=== PATIENT | male | born 1995 | race Caucasian/White ===

== ENCOUNTER 2017-12-02 16:37 | Emergency (ER) | payer BC ==
[2017-12-02] MEDS ORDERED: Silver Sulfadiazine 1% Crm 50 GM Tube TOP ONE ×2 (17:12→17:30)
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
== END 2017-12-02 17:36 | disposition home or self-care (01) ==
LOC: FB.ED 16:37
DX: T23.201A Burn of second degree of right hand, unspecified site, initial encounter (principal)
CPT/HCPCS: 16020; 99283; A9270